=== PATIENT | male | born 1960 | race African-American/Black ===

== ENCOUNTER 2018-12-08 17:54 | Emergency (ER) | payer SELFPAY ==
[~2018-12-08] VITALS: Ht 193 cm; Wt 77.0 kg
[2018-12-08 17:59] VITALS: BP 225/156
== END 2018-12-08 18:30 | disposition left against medical advice (07) ==
LOC: ER 18:18
DX: Z53.21 Procedure and treatment not carried out due to patient leaving prior to being seen by health care provider (principal)